=== PATIENT | male | born 1970 | race Two or more races ===

== ENCOUNTER 2018-08-10 13:04 | Inpatient (IN) | payer SELFPAY ==
[~2018-08-10] VITALS: Ht 172.7 cm; Wt 94.1 kg
[2018-08-10] MEDS ORDERED: LORazepam 2MG/ML-1ML VIAL IV ONE (13:15)
[2018-08-10] MEDS ORDERED: SODIUM CHLORIDE 0.9% 1,000 ML IV ONE (13:15)
[2018-08-10 13:58] LABS: Basophils # (auto) 0 uL; Basophils % (auto) 0.4 % (0.0-2.0); Eosinophils # (auto) 0.1 uL; Eosinophils % (auto) 1.4 % (0.0-7.0); Hematocrit 46.7 % (41.0-53.0); Lymphocytes # (auto) 0.6 uL; Lymphocytes % (auto) 13.4 % (10.0-50.0); Mean Corpuscular Hemoglobin 33.5 pg (28.0-32.0); Mean Corpuscular Hgb Conc. 34.3 g/dL (32.0-36.0); Mean Corpuscular Volume 97.8 fL (80.0-100.0); Monocytes # (auto) 0.4 uL; Neutrophils # (auto) 3.6 uL; Neutrophils % (auto) 76.8 % (37.0-80.0); Nucleated Red Blood Cells % 0.1 %; Platelet Count (auto) 156 10^3/uL (140-450); Red Blood Cells 4.77 10^6/uL (4.5-5.90); Red Cell Distribution Width 12.7 % (11.8-14.3); White Blood Cell 4.7 10^3/uL (4.4-10.8)
[2018-08-10 14:11] LABS: Albumin 3.6 g/dL (3.4-5.0); Anion Gap 8 (5-15); BUN/Creatinine Ratio 16.7; Blood Alcohol < 3.0 mg/dL (0-5); Blood Urea Nitrogen 12 mg/dL (7-18); Calcium 7.6 mg/dL (8.5-10.1); Carbon Dioxide 24 mmol/L (21-32); Chloride 103 mmol/L (98-107); GFR African American 149 mL/min; GFR Non-African American 123 mL/min; Glucose 313 mg/dL (74-106); Potassium 3.8 mmol/L (3.5-5.1); Sodium 135 mmol/L (136-145)
[2018-08-10 14:15] LABS: Alanine Aminotransferase 88 U/L (16-61); Alkaline Phosphatase 96 U/L (45-117); Aspartate Aminotransferase 49 U/L (15-37); Bilirubin, Total 0.6 mg/dL (0.2-1.0); Total Protein 7.4 g/dL (6.4-8.2)
[2018-08-10 14:59] LABS: Urine Bacteria NONE SEEN /hpf (None Seen); Urine Blood Negative /uL (Negative); Urine Specific Gravity 1.024 (1.001-1.035); Urine WBC 1 /hpf (0 - 3)
[2018-08-10] MEDS ORDERED: SODIUM CHLORIDE 0.9% 1,000 ML IVB ONE (14:59)
[2018-08-10] MEDS ORDERED: THIAMINE 100mg/ml INJ (200mg/2ml VIAL) IV ONE (15:00)
[2018-08-10 15:12] LABS: Alcohol, Urine < 3.0 mg/dL (0-5); Amphetamine Screen, Urine NEGATIVE (NEGATIVE); Barbiturate Scree,Urine NEGATIVE (NEGATIVE); Benzodiazephine Screen, Urine NEGATIVE (NEGATIVE); Cannabinoid Screen, Urine NEGATIVE (NEGATIVE); Cocaine Screen, Urine NEGATIVE (NEGATIVE); Opiate Scree,Urine NEGATIVE (NEGATIVE); Phencyclidine Screen, Urine NEGATIVE (NEGATIVE)
[2018-08-10] MEDS: THIAMINE INJ 100 MG, MULTIPLE VITAMIN 10 ML, FOLIC ACID 1 MG, MAGNESIUM SULF SDV 50% 8 ... IV SCH ×5 (16:00)
[2018-08-10] MEDS ORDERED: ONDANSETRON HCL 4 MG/2 ML VIAL IV PRN (21:30)
[2018-08-10] MEDS ORDERED: LORazepam 2MG/ML-1ML VIAL IV PRN (21:30)
[2018-08-10] MEDS ORDERED: ACETAMINOPHEN 500 MG TAB PO PRN (21:30)
[2018-08-10] MEDS ORDERED: HYDROcodone-ACET 5/325MG TAB PO PRN (21:30)
[2018-08-10 22:10] VITALS: BP 138/90
[2018-08-10] MEDS: chlordiazePOXIDE HCL 25 MG CAP PO SCH (22:41)
[2018-08-11 05:00] VITALS: BP 134/82
[2018-08-11] MEDS ORDERED: PNEUMOCOCCAL VACC POLYS 25 MCG/0.5 ML VIAL IM ONE ×2 (05:30)
[2018-08-11] MEDS ORDERED: INFLUENZA QUAD 2018-2019 0.5 ML SYRG IM ONE ×2 (05:30)
[2018-08-11] MEDS: chlordiazePOXIDE HCL 25 MG CAP PO SCH ×3 (05:58→21:18)
[2018-08-11] MEDS: metFORMIN HYDROCHLORIDE 500 MG TAB PO SCH ×2 (06:41→17:38)
[2018-08-11 08:00] VITALS: BP 116/69
[2018-08-11 09:19] VITALS: BP 116/69
[2018-08-11] MEDS: FOLIC ACID 1 MG TAB PO SCH (10:26)
[2018-08-11] MEDS: MULTIPLE VITAMIN TAB PO SCH (10:26)
[2018-08-11] MEDS ORDERED: DEXTROSE (50%) 50ML SYRG IV PRN (13:15)
[2018-08-11 13:19] VITALS: BP 125/77
[2018-08-11] MEDS: THIAMINE INJ 100 MG, MULTIPLE VITAMIN 10 ML, FOLIC ACID 1 MG, MAGNESIUM SULF SDV 50% 8 ... IV SCH ×5 (13:49)
[2018-08-11 17:26] VITALS: BP 115/67
[2018-08-11] MEDS: ACCU-CHEK COMFORT CURVE STRIP VI SCH ×2 (17:37→21:25)
[2018-08-11] MEDS: InsuLIN REG 1unit/0.01ml Soln (100units/ml) SC SCH (17:38)
[2018-08-11 22:00] VITALS: BP 140/91
[2018-08-11] MEDS ORDERED: InsuLIN REG 1unit/0.01ml Soln (100units/ml) SC SCH (22:00)
[2018-08-12 05:00] VITALS: BP 123/82
[2018-08-12] MEDS: metFORMIN HYDROCHLORIDE 500 MG TAB PO SCH (06:05)
[2018-08-12] MEDS: InsuLIN REG 1unit/0.01ml Soln (100units/ml) SC SCH ×2 (06:06→11:30)
[2018-08-12] MEDS: ACCU-CHEK COMFORT CURVE STRIP VI SCH ×2 (06:07→11:30)
[2018-08-12 08:00] VITALS: BP 126/90
[2018-08-12 08:30] VITALS: BP 126/90
[2018-08-12] MEDS: MULTIPLE VITAMIN TAB PO SCH (10:08)
[2018-08-12] MEDS: FOLIC ACID 1 MG TAB PO SCH (10:08)
[2018-08-12] MEDS: chlordiazePOXIDE HCL 25 MG CAP PO SCH (10:10)
== END 2018-08-12 14:45 | disposition home or self-care (01) | DRG 638 ==
LOC: ER 13:10 → WEST WING 21:28
PROVIDERS: ADMIT Nurse Practitioner Family; ATTEND Internal Medicine
DX: E11.9 Type 2 diabetes mellitus without complications (principal); F10.231 Alcohol dependence with withdrawal delirium; E66.9 Obesity, unspecified; F17.210 Nicotine dependence, cigarettes, uncomplicated; F41.9 Anxiety disorder, unspecified; R26.2 Difficulty in walking, not elsewhere classified; Z68.31 Body mass index [BMI] 31.0-31.9, adult; Z23 Encounter for immunization; Z82.49 Family history of ischemic heart disease and other diseases of the circulatory system; Z83.3 Family history of diabetes mellitus
CPT/HCPCS: 36415; 71045; 80053; 80307; 80320; 81001; 82962; 83036; 83735; 85025; 90674; 94761; 96361; 96374; 96375; G0378; J1815